=== PATIENT | female | born 1960 | race Caucasian/White ===

== ENCOUNTER 2016-12-08 10:36 | Emergency (ER) | payer MEDICAID, OTHER ==
[2016-12-08 10:52] VITALS: BMI 38.3
[2016-12-08 10:53] VITALS: BP 118/89; PULSE 76; RESP 20; TEMP 98.3; O2SAT 98
--- NOTE | 2016-12-08 11:29 | ED PDOC ---
HPI: Abdomen Time Seen by Provider: 12/08/16 11:02 Chief Complaint (Nursing): Abdominal Pain Chief Complaint (Provider): RLQ/flank pain x 2 days, no N/V/D History Per: Patient History/Exam Limitations: no limitations Onset/Duration Of Symptoms: Days Outside of [place] travel?: No Current Symptoms Are (Timing): Still Present Severity: Moderate Pain Scale Rating Of: 6 Location Of Pain/Discomfort: RLQ Quality Of Discomfort: Sharp (Intermittent ) Associated Symptoms: Urinary Symptoms (Pt states she feels like she is going a small amount often ). denies: Fever, Chills, Nausea, Vomiting, Loss Of Appetite Last Bowel Movement: Today Additional Complaint(s): Pt states she had kidney stones in the past but this feels different. Past Medical History Reviewed: Historical Data, Nursing Documentation, Vital Signs Vital Signs: Last Vital Signs Temp 98.3 F 12/08/16 10:52 Pulse 76 12/08/16 10:52 Resp 20 12/08/16 10:52 BP 118/89 12/08/16 10:52 Pulse Ox 98 12/08/16 11:34 - Medical History PMH: Arthritis (right hip and right knee), Asthma, Diabetes, HTN, Hypercholesterolemia, Hypothyroidism, Kidney Stones (RIGHT) Denies: HIV, Chronic Kidney Disease - Surgical History Surgical History: Appendectomy, Cholecystectomy - Family History Family History: States: Unknown Family Hx - Living Arrangements Living Arrangements: With Family - Social History Current smoker - smoking cessation education provided: No Alcohol: None Drugs: Denies - Immunization History Hx Tetanus Toxoid Vaccination: No Hx Influenza Vaccination: No Hx Pneumococcal Vaccination: Yes - Home Medications Home Medications: Ambulatory Orders Medication Instructions Recorded Albuterol HFA [Ventolin HFA 90 2 puff IH PRN PRN 11/12/15 mcg/actuation (8 g)] Atorvastatin Calcium [Lipitor] 40 mg PO DAILY 11/12/15 Diclofenac Sodium [Voltaren] 100 gm TP PRN PRN 11/12/15 Furosemide [Lasix] 20 mg PO DAILY 11/12/15 Levothyroxine [Synthroid] 50 mcg PO DAILY 11/12/15 Metformin HCl [Glucophage] 500 mg PO DAILY 11/12/15 Mometasone/Formoterol [Dulera] 2 lara IH BID 11/12/15 Montelukast [Singulair] 10 mg PO DAILY 11/12/15 Multivit,Iron,Min 5/Folic Acid 1 tab PO DAILY 11/12/15 [Strovite Forte] Naproxen [Naprosyn] 500 mg PO DAILY PRN 11/12/15 Potassium Chloride [K-Dur 20] 20 meq PO DAILY 11/12/15 Famotidine [Pepcid] 20 mg PO HS #5 tab 06/18/16 Prednisone [Deltasone] 40 mg PO DAILY #8 tablet 06/18/16 Ciprofloxacin [Cipro] 500 mg PO BID #10 tab 12/08/16 Tamsulosin [Flomax] 0.4 mg PO DAILY #10 cap 12/08/16 traMADol [Ultram] 50 mg PO Q6H PRN #15 tab 12/08/16 - Allergies Allergies/Adverse Reactions: Allergies Allergy/AdvReac Type Severity Reaction Status Date / Time No Known Allergies Allergy Verified 12/08/16 11:25 Review of Systems ROS Statement: Except As Marked, All Systems Reviewed And Found Negative Gastrointestinal: Positive for: Abdominal Pain (Right flank ) Physical Exam - Reviewed Nursing Documentation Reviewed: Yes Vital Signs Reviewed: Yes - Physical Exam Appears: Positive for: Well, Non-toxic, No Acute Distress Head Exam: Positive for: ATRAUMATIC, NORMAL INSPECTION, NORMOCEPHALIC Skin: Positive for: Normal Color, Warm, DRY Eye Exam: Positive for: Normal appearance ENT: Positive for: Normal ENT Inspection Neck: Positive for: Normal, Painless ROM Cardiovascular/Chest: Positive for: Regular Rate, Rhythm Respiratory: Positive for: Normal Breath Sounds. Negative for: Accessory Muscle Use, Respiratory Distress Gastrointestinal/Abdominal: Positive for: Bowel Sounds, Soft, Tenderness (RLQ at [place] ). Negative for: Normal Exam Back: Positive for: Normal Inspection Extremity: Positive for: Normal ROM Neurologic/Psych: Positive for: Alert, Oriented - Laboratory Results Result Diagrams: 12/08/16 12:17 12/08/16 12:17 - ECG O2 Sat by Pulse Oximetry: 98 Pulse Ox Interpretation: Normal Medical Decision Making Medical Decision Making: (+) kidney stone, distal ureter (+) mass right pelvis, unchanged from previous (+) unchanged bilateral avascular necrosis Disposition - Clinical Impression Clinical Impression: Kidney stone - Patient ED Disposition Is Patient to be Admitted: No Counseled Patient/Family Regarding: Diagnosis, Need For Followup, Rx Given - Disposition Referrals: [facility] [Outside] Disposition: Routine/Home Disposition Time: 15:13 Condition: GOOD Additional Instructions: Please f.u with PMD for additional findings on CT scan. Prescriptions: Ciprofloxacin [Cipro] 500 mg PO BID #10 tab Tamsulosin [Flomax] 0.4 mg PO DAILY #10 cap traMADol [Ultram] 50 mg PO Q6H PRN #15 tab PRN Reason: Pain Instructions: Kidney Stones (ED) Print Language: ARABIC
[2016-12-08] MEDS ORDERED: Sodium Chloride 0.9% 1,000 ML IV STA (11:30)
[2016-12-08 12:28] LABS: BASO % 0.5 % (0.0-2.0); EOS # 0.4 K/uL (0.0-0.7); EOS % 5.2 % (0.0-4.0); HEMATOCRIT 37.5 % (34.0-47.0); LYMPH # 1.8 K/uL (1.0-4.3); LYMPH % 24.5 % (20.0-40.0); MEAN CELL VOLUME 90.8 fl (81.0-99.0); MEAN CORPUSCULAR HEMOGLOBIN 30.3 pg (27.0-31.0); MEAN CORPUSCULAR HGB CONC 33.4 g/dL (33.0-37.0); MEAN PLATELET VOLUME 8.4 fl (7.2-11.7); MONO # 0.5 K/uL (0.0-0.8); NEUT # 4.8 K/uL (1.8-7.0); NEUT % 63.8 % (50.0-75.0); WHITE BLOOD COUNT 7.5 K/uL (4.8-10.8)
[2016-12-08 12:42] LABS: ALB/GLOB RATIO 1.6 (1.0-2.1); ALKALINE PHOSPHATASE 127 U/L (38-126); ALT/SGPT 45 U/L (9-52); AST/SGOT 31 U/L (14-36); BILIRUBIN,TOTAL 0.4 mg/dl (0.2-1.3); BLOOD UREA NITROGEN 14 mg/dl (7-17); CALCIUM 10.2 mg/dL (8.4-10.2); CARBON DIOXIDE 24 mmol/L (22-30); CHLORIDE 102 mmol/L (98-107); GFR AFRICAN-AMERICAN > 60; GLUCOSE,RANDOM 154 mg/dL (65-105); SODIUM 139 mmol/l (132-148); TOTAL PROTEIN 7.1 G/DL (6.3-8.2)
[2016-12-08] MEDS ORDERED: Iohexol 300 100 ML IJ ONE (13:17)
[2016-12-08] MEDS ORDERED: Sodium Chloride 0.9% 50 ML IV ONE (13:17)
--- NOTE | 2016-12-08 15:00 | CT ---
PROCEDURE: CT Abdomen and Pelvis with contrast HISTORY: rlq pain COMPARISON: 10/03/2015 TECHNIQUE: Contrast dose: 95 cc Radiation dose: Total exam DLP = 1065.71 mGy-cm. This CT exam was performed using one or more of the following dose reduction techniques: Automated exposure control, adjustment of the mA and/or kV according to patient size, and/or use of iterative reconstruction technique. FINDINGS: LOWER THORAX: Unremarkable. LIVER: Hypoattenuation of the liver could be related to hepatic steatosis. No gross lesion identified. GALLBLADDER AND BILE DUCTS: Gallbladder not seen. Surgical clips in the gallbladder fossa. No intra or extrahepatic biliary ductal dilatation. PANCREAS: Fat infiltration in the region of the pancreatic head. Otherwise no gross pancreatic lesion seen. SPLEEN: Unremarkable. ADRENALS: Unremarkable. No mass. KIDNEYS AND URETERS: Decreased attenuation of the right kidney with moderate to severe hydronephrosis. There is mild to moderate hydroureteronephrosis with a radiopaque calculus measuring approximately 5 millimeters in the distal right ureter. Left kidney appears unremarkable. No hydronephrosis on the left. VASCULATURE: Unremarkable. No aortic aneurysm. BOWEL: Collapsed stomach limiting evaluation. No bowel obstruction. APPENDIX: Normal appendix. PERITONEUM: Unremarkable. No free fluid. No free air. LYMPH NODES: 2.8 centimeter hypoattenuating structure in the retroperitoneum adjacent to the aorta on the left and inferior to the left adrenal gland again seen. This has remained stable in size. BLADDER: Near completely collapsed limiting evaluation. REPRODUCTIVE: Please note that evaluation of gynecologic organs is not optimal on CT imaging. Fluid attenuating structure in the left hemipelvis measuring 3.4 centimeters has remained stable in size in appearance. This is of unclear etiology. BONES: Possible avascular necrosis bilaterally involving the femoral heads right greater than left. This was seen in the prior CT and has remained essentially unchanged in size and appearance. OTHER FINDINGS: None. IMPRESSION: 5 millimeter radiopaque calculus in the distal right ureter with associated moderate to severe hydroureteronephrosis and perinephric stranding. Underlying infection cannot be excluded. Near completely collapsed urinary bladder limiting evaluation. No hydronephrosis on the left. 2.8 centimeter hypo attenuating structure in the retroperitoneum in the left/adjacent to the aorta and inferior to the left adrenal gland again seen, stable in size and appearance. 3.4 centimeter fluid attenuating structure in the left hemipelvis has remained stable in size in appearance. Discussed with PA. Burks at approximately 3 p.m. on 12/08/2016.
== END 2016-12-08 15:35 | disposition home or self-care (01) ==
LOC: H.ER 10:36
DX: N20.0 Calculus of kidney (principal); E03.9 Hypothyroidism, unspecified; E11.9 Type 2 diabetes mellitus without complications; E78.00 Pure hypercholesterolemia, unspecified; I10 Essential (primary) hypertension; J45.909 Unspecified asthma, uncomplicated

== ENCOUNTER 2016-12-09 19:26 | Inpatient (IN) | payer OTHER ==
[2016-12-09 19:26] VITALS: BMI 38.3
[2016-12-09] MEDS ORDERED: Sodium Chloride 0.9% 1,000 ML IV STA (20:26)
[2016-12-09] MEDS ORDERED: levoFLOXacin 750 mg in D5W 150 ML BAG IVPB STA (20:41)
[2016-12-09] MEDS ORDERED: levoFLOXacin 750 mg in D5W 750 MG/150 ML BAG IVPB ONE (20:57)
--- NOTE | 2016-12-09 20:58 | ED PDOC ---
HPI: Abdomen Time Seen by Provider: 12/09/16 20:22 Chief Complaint (Nursing): Abdominal Pain Chief Complaint (Provider): Abdominal Pain History Per: Patient History/Exam Limitations: no limitations Onset/Duration Of Symptoms: Days (1x) Severity: Moderate Location Of Pain/Discomfort: Other (right side (right flank)) Associated Symptoms: Vomiting (5x episodes, non bloody, non bilious), Back Pain (right flank) Additional Complaint(s): 56 year old female with a pertinent medical history of kidney stones presents to the ED with complaints of right sided abdominal and flank pain. She was seen in the ED yesterday for kidney stones and was sent home with PO medication. Patient reports that today she vomited 5x times (non bloody, non bilious). Today she was sent to the ED by her PMD Dr. Jennings. She denies having any other medical complaints. PMD: Eagle Jennings MD Past Medical History Reviewed: Historical Data, Nursing Documentation, Vital Signs Vital Signs: Last Vital Signs Temp 98.8 F 12/10/16 01:00 Pulse 77 12/10/16 01:00 Resp 20 12/10/16 01:00 BP 106/68 12/10/16 01:00 Pulse Ox 95 12/10/16 01:00 - Medical History PMH: Arthritis (right hip and right knee), Asthma, Diabetes, HTN, Hypercholesterolemia, Hypothyroidism, Kidney Stones (RIGHT) Denies: HIV, Chronic Kidney Disease - Surgical History Surgical History: Appendectomy, Cholecystectomy - Family History Family History: States: Unknown Family Hx - Social History Current smoker - smoking cessation education provided: No Alcohol: None Drugs: Denies - Immunization History Hx Tetanus Toxoid Vaccination: No Hx Influenza Vaccination: No Hx Pneumococcal Vaccination: Yes - Home Medications Home Medications: Ambulatory Orders Medication Instructions Recorded Albuterol HFA [Ventolin HFA 90 2 puff IH PRN PRN 11/12/15 mcg/actuation (8 g)] Atorvastatin Calcium [Lipitor] 40 mg PO DAILY 11/12/15 Diclofenac Sodium [Voltaren] 100 gm TP PRN PRN 11/12/15 Furosemide [Lasix] 20 mg PO DAILY 11/12/15 Levothyroxine [Synthroid] 50 mcg PO DAILY 11/12/15 Metformin HCl [Glucophage] 500 mg PO DAILY 11/12/15 Mometasone/Formoterol [Dulera] 2 lara IH BID 11/12/15 Montelukast [Singulair] 10 mg PO DAILY 11/12/15 Multivit,Iron,Min 5/Folic Acid 1 tab PO DAILY 11/12/15 [Strovite Forte] Naproxen [Naprosyn] 500 mg PO DAILY PRN 11/12/15 Potassium Chloride [K-Dur 20] 20 meq PO DAILY 11/12/15 Famotidine [Pepcid] 20 mg PO HS #5 tab 06/18/16 Prednisone [Deltasone] 40 mg PO DAILY #8 tablet 06/18/16 Ciprofloxacin [Cipro] 500 mg PO BID #10 tab 12/08/16 Tamsulosin [Flomax] 0.4 mg PO DAILY #10 cap 12/08/16 traMADol [Ultram] 50 mg PO Q6H PRN #15 tab 12/08/16 - Allergies Allergies/Adverse Reactions: Allergies Allergy/AdvReac Type Severity Reaction Status Date / Time No Known Allergies Allergy Verified 12/08/16 11:25 Review of Systems ROS Statement: Except As Marked, All Systems Reviewed And Found Negative Gastrointestinal: Positive for: Nausea, Vomiting, Abdominal Pain (right sided) Musculoskeletal: Positive for: Back Pain (right sided flank pain) Physical Exam - Reviewed Nursing Documentation Reviewed: Yes Vital Signs Reviewed: Yes - Physical Exam Appears: Positive for: Well, Non-toxic, No Acute Distress Head Exam: Positive for: ATRAUMATIC, NORMOCEPHALIC Skin: Positive for: Normal Color, Warm, Dry Cardiovascular/Chest: Positive for: Regular Rate, Rhythm Respiratory: Positive for: Normal Breath Sounds. Negative for: Respiratory Distress Gastrointestinal/Abdominal: Positive for: Normal Exam, Soft. Negative for: Tenderness, Guarding, Rebound Back: Positive for: R CVA Tenderness (right flank tenderness) Neurologic/Psych: Positive for: Alert, Oriented (3x) - Laboratory Results Result Diagrams: 12/09/16 21:00 12/09/16 21:00 - ECG O2 Sat by Pulse Oximetry: 99 (RA) Pulse Ox Interpretation: Normal Medical Decision Making Medical Decision Makin:22 Initial impression: 56 year old female with kidney stones and intractable vomiting. Initial plan: * EKG * BMP * CBC * XRay chest 1 view * levaquin 750 mg IVPB * morphine 2mg IVP * IV NS 1,000ml IV 500mls/hr * toradol 15mg IVP * zofran inj 4mg IVP * blood culture * urine culture * urinalysis * reevaluation 20:32 Patient will be admitted to med/surg under Dr. Jennings for kidney stones and intractable vomiting. There is agreement for plan. Dr. Herbert consulted and will see patient while admitted. Scribe Attestation: Documented by Sonya Ca, acting as a scribe for Stephen Castillo MD. Provider Scribe Attestation: All medical record entries made by the Scribe were at my direction and personally dictated by me. I have reviewed the chart and agree that the record accurately reflects my personal performance of the history, physical exam, medical decision making, and the department course for this patient. I have also personally directed, reviewed, and agree with the discharge instructions and disposition. Disposition - Clinical Impression Clinical Impression: Kidney stone - Disposition Disposition Time: 20:32 Condition: STABLE
[2016-12-09 21:46] LABS: BASO # 0.1 K/uL (0.0-0.2); BASO % 0.4 % (0.0-2.0); EOS # 0.1 K/uL (0.0-0.7); EOS % 0.5 % (0.0-4.0); HEMATOCRIT 40.3 % (34.0-47.0); LYMPH % 7.4 % (20.0-40.0); MEAN CELL VOLUME 91.8 fl (81.0-99.0); MEAN CORPUSCULAR HEMOGLOBIN 29.6 pg (27.0-31.0); MEAN CORPUSCULAR HGB CONC 32.3 g/dL (33.0-37.0); MEAN PLATELET VOLUME 8.5 fl (7.2-11.7); MONO # 0.4 K/uL (0.0-0.8); NEUT # 11.5 K/uL (1.8-7.0); NEUT % 88.7 % (50.0-75.0); PLATELET COUNT 320 K/uL (130-400); RED CELL DISTRIBUTION WIDTH 14.3 % (11.5-14.5)
[2016-12-09 21:52] LABS: BLOOD UREA NITROGEN 10 mg/dl (7-17); CALCIUM 10.2 mg/dL (8.4-10.2); CARBON DIOXIDE 26 mmol/L (22-30); CHLORIDE 99 mmol/L (98-107); GFR AFRICAN-AMERICAN > 60; GLUCOSE,RANDOM 129 mg/dL (65-105); POTASSIUM 4.1 MMOL/L (3.6-5.0); SODIUM 141 mmol/l (132-148)
[2016-12-09 22:25] LABS: NEUTROPHIL 89 % (42-75); TOTAL CELLS COUNTED 100
[2016-12-09] MEDS ORDERED: HYDROmorphone 0.5 mg/0.5 ml ISec IVP PRN (23:12)
[2016-12-09] MEDS: Sodium Chloride 0.9% 1,000 ML IV SCH (23:46)
[2016-12-09] MEDS ORDERED: Albuterol HFA 90 mcg/actuation (8 g) IH PRN (23:55)
[2016-12-10] MEDS ORDERED: Albuterol HFA 90 mcg/actuation (8 g) INH PRN (00:20)
[2016-12-10] MEDS ORDERED: VENTOLIN INH SCH (01:00)
[2016-12-10] MEDS ORDERED: VENTOLIN INH PRN (01:00)
[2016-12-10] MEDS: Ciprofloxacin 400mg/200ml D5W 400 MG/200 ML BAG IVPB SCH ×3 (01:07→20:49)
[2016-12-10 04:00] LABS: RBC URINE < 1 /hpf (0-3); URINE BILIRUBIN NEGATIVE (NEGATIVE); URINE BLOOD NEGATIVE (NEGATIVE); URINE COLOR YELLOW (YELLOW); URINE GLUCOSE (UA) NEG (Normal); URINE KETONE NEGATIVE (NEGATIVE); URINE LEUKOCYTE ESTERASE NEG Leu/uL (Negative); URINE PROTEIN 30 mg/dL (NEGATIVE); URINE UROBILINOGEN 0.2-1.0 mg/dL (0.2-1.0); WBC URINE 1 /hpf (0-5)
[2016-12-10] MEDS: Levothyroxine 50 MCG TAB PO SCH (06:25)
[2016-12-10] MEDS: Insulin Lispro (humaLOG) 100 Units/ml Inj SC SCH ×4 (07:22→22:05)
[2016-12-10] MEDS ORDERED: Insulin Regular 100 units/ml SC SCH (07:30)
--- NOTE | 2016-12-10 08:46 | CARD ---
APPROVED REPORT EKG Measurement Heart [id number] <Conclusion> Normal sinus rhythm Normal ECG
--- NOTE | 2016-12-10 09:59 | RAD ---
PROCEDURE: CHEST RADIOGRAPH, 1 VIEW HISTORY: abd pain COMPARISON: None available. FINDINGS: LUNGS: Clear. PLEURA: No pneumothorax or pleural fluid seen. CARDIOVASCULAR: Normal. OSSEOUS STRUCTURES: No significant abnormalities. VISUALIZED UPPER ABDOMEN: Normal. OTHER FINDINGS: None. IMPRESSION: No active disease.
[2016-12-10] MEDS: Sodium Chloride 0.9% 1,000 ML IV SCH ×2 (10:33→14:45)
[2016-12-10] MEDS ORDERED: Midazolam 2 MG/2 ML VIAL ONE (11:58)
[2016-12-10] MEDS ORDERED: Propofol 10 mg/ml Inj (20 ML) ONE (11:58)
[2016-12-10] MEDS ORDERED: cefTRIAXone (Rocephin) 1 gm Inj ONE (12:30)
[2016-12-10] MEDS ORDERED: Lactated Ringer's 1,000 ML IV ONE (12:30)
[2016-12-10] MEDS ORDERED: cefTRIAXone (Rocephin) 1 gm Inj IVPB ONE (12:40)
[2016-12-10] MEDS ORDERED: HYDROmorphone 0.5 mg/0.5 ml ISec IVP PRN (13:05)
--- NOTE | 2016-12-10 13:05 | CP.PCM.PN ---
Subjective - Date & Time of Evaluation Date of Evaluation: 12/10/16 Time of Evaluation: 13:04 - Subjective Subjective: UROLOGY stone removed from ureter today pt can be discharged today no need for antibiotics Objective - Vital Signs/Intake and Output Vital Signs (last 24 hours): Temp Pulse Resp BP Pulse Ox 99.0 F 76 20 124/77 97 12/10/16 08:05 12/10/16 08:05 12/10/16 08:05 12/10/16 08:05 12/10/16 08:05 - Medications Medications: Current Medications Famotidine (Pepcid) 20 mg PO [facility] Furosemide (Lasix) 20 mg PO DAILY [facility] Last Admin: 12/10/16 10:32 Dose: Not Given Home Med (Patient's Own Medication) 2 unit INH Q4 PRN PRN Reason: shortness of breathe Last Admin: 12/10/16 01:08 Dose: 2 unit Hydromorphone HCl (Dilaudid) 0.5 mg IVP Q2 PRN PRN Reason: Pain, moderate (4-7) Sodium Chloride (Sodium Chloride 0.9%) 1,000 mls @ 100 mls/hr IV .Q10H [facility] Stop: 12/10/16 23:11 Last Admin: 12/10/16 10:33 Dose: 100 mls/hr Ciprofloxacin (Cipro 400mg/200ml Dsw) 400 mg in 200 mls @ 200 mls/hr IVPB Q12 [facility] Last Admin: 12/10/16 10:31 Dose: 200 mls/hr Insulin Human Lispro (Humalog) 0 units SC ACHS RAZIA PRN Reason: Protocol Last Admin: 12/10/16 07:22 Dose: Not Given Levothyroxine Sodium (Synthroid) 50 mcg PO DAILY@0630 [facility] Last Admin: 12/10/16 06:25 Dose: 50 mcg Montelukast Sodium (Singulair) 10 mg PO DAILY [facility] Last Admin: 12/10/16 10:32 Dose: Not Given Tamsulosin HCl (Flomax) 0.4 mg PO DAILY [facility] Last Admin: 12/10/16 10:32 Dose: 0.4 mg Tamsulosin HCl (Flomax) 0.4 mg PO DAILY [facility] Last Admin: 12/10/16 10:32 Dose: Not Given - Labs Labs: 12/09/16 21:00 12/09/16 21:00
--- NOTE | 2016-12-11 00:33 | HP ---
HISTORY OF PRESENT ILLNESS: This is a 56-year-old female with history of multiple medical problems, presented to my office on the day of admission with right flank pain. The patient was sent to Emergency Room the night before , and she was diagnosed with ureteric stone with hydroureter and hydronephrosis. Because the stone was 4 mm in size, the patient was given pain medicine, and she was discharged home. The patient continued to have pain and presented to my office on the day of admission. The patient was referred to Emergency Room for evaluation and was admitted for further management. The patient had previous history of passing stones and similar presentation about a year ago. The patient's urologist is Dr. Herbert. The patient denies having fever or chills. Positive symptoms of dysuria. REVIEW OF SYSTEMS: Other review of systems is negative. ALLERGIES: No known allergies. HOME MEDICATIONS: Ultram 50 mg q. 6 hours p.r.n., Flomax 0.4 mg daily, prednisone 40 mg daily, potassium chloride 20 mEq daily, naproxen 500 mg daily, multivitamin 1 tablet daily, Singulair 10 mg, Synthroid 50 mcg daily, Lasix 20 mg daily, Pepcid 20 mg daily, atorvastatin 40 mg daily. PAST MEDICAL HISTORY: Type 2 diabetes mellitus, hypercholesterolemia, hypothyroidism, bronchial asthma. SOCIAL HISTORY: No history of smoking, ETOH, or substance abuse. FAMILY HISTORY: Not contributory. PHYSICAL EXAMINATION: GENERAL: The patient is in bed, comfortable, not in any cardiopulmonary distress. VITAL SIGNS: Blood pressure 104/68, temperature 98.6, respiratory rate 20, and pulse 77. HEENT: Pupils equal, reactive to light. Normal-appearing mucosa of the conjunctivae, oropharyngeal, and nasal membrane mucosa. NECK: Supple. No JVD. No carotid bruit. No lymph node. No thyromegaly. CHEST AND LUNGS: Bilateral symmetrical expansion, good air exchange. No rales. No rhonchi. CARDIOVASCULAR: PMI not localized. S1, S2. No additional sounds. ABDOMEN: Normoactive bowel sounds. No tenderness. No organomegaly. No masses. EXTREMITIES: No cyanosis. No clubbing. No edema. CENTRAL NERVOUS SYSTEM: Alert, awake, oriented x 3. No neurological deficits could be appreciated. ASSESSMENT: Ureteric stone with hydroureter and hydronephrosis, type 2 diabetes mellitus, hypertension, bronchial asthma, hypothyroidism. PLAN: Continue IV fluids and ciprofloxacin. Urology consultation and follow recommendations. Accu-Cheks with insulin coverage. Idalmis Arsh Jennings MD cc: 167 TT: 12/11/2016 00:32:27 tn MTDD
[2016-12-11] MEDS: Levothyroxine 50 MCG TAB PO SCH (06:31)
--- NOTE | 2016-12-11 06:39 | CARD ---
APPROVED REPORT EKG Measurement Heart [id number] <Conclusion> Normal sinus rhythm Normal ECG
[2016-12-11] MEDS: Insulin Lispro (humaLOG) 100 Units/ml Inj SC SCH (06:50)
[2016-12-11 08:30] VITALS: PULSE 67; RESP 20; TEMP 98.4; O2SAT 96
[2016-12-11] MEDS: Ciprofloxacin 400mg/200ml D5W 400 MG/200 ML BAG IVPB SCH (09:40)
[2016-12-11] MEDS ORDERED: Albuterol-Ipratrop 3 mg / 0.5 (3 ml) UD INH STA (09:45)
[2016-12-11 09:47] VITALS: BP 136/81
--- NOTE | 2016-12-11 21:05 | DS ---
REASON FOR ADMISSION: This is a 56-year-old female with history of multiple medical problem s who was admitted for biliary colic with right ureteral stone and right hydronephrosis. COURSE OF HOSPITALIZATION: The patient was admitted to medical floor and she was started on IV fluid and IV antibiotics. The patient had a urology consult done by Dr. Herbert. The patient underwent a cystoscopy and ureteroscopy with basketing out of the stone and the patient had a stent placed. The patient was discharged in a stable condition after cleared by urology, to follow up with urology and with her primary care physician. FINAL DIAGNOSES: Renal colic, ureteric stone with right hydronephrosis. Eagle Jennings MD cc: 167 TT: 12/11/2016 21:05:21 olinda
--- NOTE | 2016-12-30 20:03 | OP ---
PROCEDURE DATE: 12/10/2016 PREOPERATIVE DIAGNOSIS: Right renal colic secondary to a right ureteral calculus. POSTOPERATIVE DIAGNOSIS: Right renal colic secondary to a right ureteral calculus. PROCEDURE PERFORMED: Cystoscopy, right ureteroscopy, stone basketing. DESCRIPTION OF PROCEDURE: The patient was placed on the operating table in a dorsal lithotomy positi on. The area of the groin was draped and prepped in a sterile manner. Using a short ureteroscope, I entered into the bladder atraumatically, identified the right ureteral orifice. Over a floppy tip g uidewire, I advanced the ureteroscope to the level of the obstructing stone. I bypassed it. I was a ble to deploy doubly helical basket, I engaged it and removed it completely. Once this was done, I t ook a second pass look no residual fragments noted. At this time, then the ureteroscope was removed. The patient was taken from the operating room in good condition. The stone was sent for specimen a nalysis. Víctor Herbert MD cc: 48 TT: 12/30/2016 20:02:33 flavia
== END 2016-12-11 16:06 | disposition home or self-care (01) | DRG 311 ==
LOC: H.ER 19:26 → H.ERHOLD 20:28 → H.MEDSURG1 23:04 → OBSVTOIN 12-10 18:54
PROVIDERS: ADMIT Internal Medicine; ATTEND Internal Medicine
PROC: 0TC68ZZ Extirpation of Matter from Right Ureter, Via Natural or Artificial Opening Endoscopic (ICD-10-PCS; principal; 2016-12-10 12:15)
DX: N13.2 Hydronephrosis with renal and ureteral calculous obstruction (principal); I10 Essential (primary) hypertension; E03.9 Hypothyroidism, unspecified; E11.9 Type 2 diabetes mellitus without complications; E78.00 Pure hypercholesterolemia, unspecified; J45.909 Unspecified asthma, uncomplicated; Z87.442 Personal history of urinary calculi; M16.11 Unilateral primary osteoarthritis, right hip; M17.11 Unilateral primary osteoarthritis, right knee

== ENCOUNTER 2017-03-26 15:41 | Observation (INO) | payer OTHER ==
[2017-03-26 15:42] VITALS: BMI 38.3
[2017-03-26] MEDS ORDERED: Albuterol-Ipratrop 3 mg / 0.5 (3 ml) UD IH STA ×2 (15:58)
[2017-03-26] MEDS ORDERED: Albuterol-Ipratrop 3 mg / 0.5 (3 ml) UD ONE (16:06)
--- NOTE | 2017-03-26 16:06 | ED PDOC ---
HPI: SOB/CHF/COPD Time Seen by Provider: 03/26/17 15:52 Chief Complaint (Nursing): Shortness Of Breath Chief Complaint (Provider): Shortness Of Breath History Per: Patient History/Exam Limitations: no limitations Onset/Duration Of Symptoms: Days (x2) Current Symptoms Are (Timing): Still Present Additional Complaint(s): Estefania is a 56 y/o female who presents to the ED complaining of shortness of breath with associated wheezing and non-productive cough for 2 days. No improvement with home inhalers or nebulizer treatments. No fever. Patient with past medical history of asthma, hypothyroidism, and hypercholesterolemia. PMD: Eagle Jennings Past Medical History Vital Signs: Last Vital Signs Temp 98.7 F 03/26/17 16:27 Pulse 77 03/26/17 16:27 Resp 19 03/26/17 17:01 BP 112/69 03/26/17 16:27 Pulse Ox 99 03/26/17 16:27 - Medical History PMH: Arthritis (right hip and right knee), Asthma, Diabetes, HTN, Hypercholesterolemia, Hypothyroidism, Kidney Stones (RIGHT) Denies: HIV, Chronic Kidney Disease - Surgical History Surgical History: Appendectomy, Cholecystectomy - Family History Family History: States: Unknown Family Hx - Immunization History Hx Tetanus Toxoid Vaccination: No Hx Influenza Vaccination: No Hx Pneumococcal Vaccination: Yes - Home Medications Home Medications: Ambulatory Orders Medication Instructions Recorded Albuterol HFA [Ventolin HFA 90 2 puff IH PRN PRN 11/12/15 mcg/actuation (8 g)] Atorvastatin Calcium [Lipitor] 40 mg PO DAILY 11/12/15 Diclofenac Sodium [Voltaren] 100 gm TP PRN PRN 11/12/15 Furosemide [Lasix] 20 mg PO DAILY 11/12/15 Levothyroxine [Synthroid] 50 mcg PO DAILY 11/12/15 Metformin HCl [Glucophage] 500 mg PO DAILY 11/12/15 Mometasone/Formoterol [Dulera 200 2 lara IH BID 11/12/15 Mcg/5 Mcg Inhaler] Montelukast [Singulair] 10 mg PO DAILY 11/12/15 Multivit,Iron,Min 5/Folic Acid 1 tab PO DAILY 11/12/15 [Strovite Forte Caplet] Naproxen [Naprosyn] 500 mg PO DAILY PRN 11/12/15 Potassium Chloride [K-Dur 20 mEq 20 meq PO DAILY 11/12/15 ER Tab] Famotidine [Pepcid] 20 mg PO HS #5 tab 06/18/16 Tamsulosin [Flomax] 0.4 mg PO DAILY #10 cap 12/08/16 traMADol [Ultram] 50 mg PO Q6H PRN #15 tab 12/08/16 Ciprofloxacin [Cipro] 500 mg PO BID #10 tab 12/11/16 Lactobacillus Acidophilus [Bacid 1 cap PO DAILY #10 cap 12/11/16 Acidophilus] - Allergies Allergies/Adverse Reactions: Allergies Allergy/AdvReac Type Severity Reaction Status Date / Time No Known Allergies Allergy Verified 12/08/16 11:25 Review of Systems ROS Statement: Except As Marked, All Systems Reviewed And Found Negative Constitutional: Negative for: Fever, Chills Cardiovascular: Negative for: Chest Pain Respiratory: Positive for: Cough (non productive), Shortness of Breath, Wheezing Physical Exam - Reviewed Nursing Documentation Reviewed: Yes Vital Signs Reviewed: Yes - Physical Exam Appears: Positive for: Non-toxic, No Acute Distress Head Exam: Positive for: ATRAUMATIC, NORMAL INSPECTION, NORMOCEPHALIC Skin: Positive for: Normal Color, Warm, Dry Eye Exam: Positive for: EOMI, Normal appearance, PERRL ENT: Positive for: Normal ENT Inspection Neck: Positive for: Normal, Painless ROM, Supple Cardiovascular/Chest: Positive for: Regular Rate, Rhythm. Negative for: Murmur Respiratory: Positive for: Decreased Breath Sounds, Rhonchi (scattered rhonchi bilaterally), Wheezing (expiratory). Negative for: Respiratory Distress Gastrointestinal/Abdominal: Positive for: Normal Exam, Soft. Negative for: Tenderness Extremity: Positive for: Normal ROM. Negative for: Pedal Edema, Deformity Neurologic/Psych: Positive for: Alert, Oriented. Negative for: Motor/Sensory Deficits - Laboratory Results Result Diagrams: 03/26/17 16:20 Medical Decision Making Medical Decision Making: Time: 15:57 Initial Plan: --EKG --CXR 2 views --CMP --CBC --Urine --Urine dipstick --Blood culture --Solu-medrol 125 mg IV x1 --Duoneb 3 ml INH x2 --Peak Flow pre/post treatment --Pending reevaluation Scribe Attestation: Documented by Joanna Clay, acting as a scribe for Kody Thakkar MD Provider Scribe Attestation: All medical record entries made by the Scribe were at my direction and personally dictated by me. I have reviewed the chart and agree that the record accurately reflects my personal performance of the history, physical exam, medical decision making, and the department course for this patient. I have also personally directed, reviewed, and agree with the discharge instructions and disposition. Disposition - Clinical Impression Clinical Impression: Exacerbation of asthma, Failure of outpatient treatment - Patient ED Disposition Is Patient to be Admitted: Yes - Disposition Disposition Time: 17:05 Condition: FAIR Forms: [employer] (Chinese) - Pt Status Changed To: Hospital Disposition Of: Observation - POA Present On Arrival: None
[2017-03-26 16:52] LABS: BASO % 0.6 % (0.0-2.0); EOS # 0.2 K/uL (0.0-0.7); EOS % 3.5 % (0.0-4.0); HEMATOCRIT 39.6 % (34.0-47.0); LYMPH # 1.9 K/uL (1.0-4.3); LYMPH % 29.1 % (20.0-40.0); MEAN CORPUSCULAR HEMOGLOBIN 29.7 pg (27.0-31.0); MEAN CORPUSCULAR HGB CONC 32.6 g/dL (33.0-37.0); MEAN PLATELET VOLUME 8.1 fl (7.2-11.7); MONO # 0.3 K/uL (0.0-0.8); NEUT # 4.1 K/uL (1.8-7.0); NEUT % 61.8 % (50.0-75.0); RED CELL DISTRIBUTION WIDTH 14.7 % (11.5-14.5); WHITE BLOOD COUNT 6.7 K/uL (4.8-10.8)
[2017-03-26 17:05] LABS: ALB/GLOB RATIO 1.6 (1.0-2.1); ALKALINE PHOSPHATASE 124 U/L (38-126); ALT/SGPT 45 U/L (9-52); AST/SGOT 25 U/L (14-36); BILIRUBIN,TOTAL 0.6 mg/dl (0.2-1.3); BLOOD UREA NITROGEN 10 mg/dl (7-17); CARBON DIOXIDE 21 mmol/L (22-30); CHLORIDE 103 mmol/L (98-107); GFR AFRICAN-AMERICAN > 60; GLUCOSE,RANDOM 117 mg/dL (65-105); POTASSIUM 4.1 MMOL/L (3.6-5.0); SODIUM 139 mmol/l (132-148); TOTAL PROTEIN 7.6 G/DL (6.3-8.2)
[2017-03-26] MEDS ORDERED: Sodium Chloride 0.9% 1,000 ML IV STA (17:22)
--- NOTE | 2017-03-26 17:26 | RAD ---
HISTORY: SOB COMPARISON: 12/09/2016. TECHNIQUE: Chest PA and lateral FINDINGS: LUNGS: No active pulmonary disease. PLEURA: No significant pleural effusion identified. No pneumothorax apparent. CARDIOVASCULAR: No radiographic findings to suggest acute or significant cardiovascular disease. OSSEOUS STRUCTURES: No significant abnormalities. VISUALIZED UPPER ABDOMEN: Normal. OTHER FINDINGS: None. IMPRESSION: No active disease. No significant interval change compared to the prior examination(s).
[2017-03-26 21:01] LABS: VENOUS BLOOD GAS BASE EXCESS -2.2 mmol/L (0.0-2.0); VENOUS BLOOD GAS PCO2 41 mmHg (40-60); VENOUS BLOOD PH 7.36 (7.32-7.43)
[2017-03-26 22:03] LABS: VENOUS BLOOD GAS BASE EXCESS -2.2 mmol/L (0.0-2.0); VENOUS BLOOD GAS PCO2 41 mmHg (40-60); VENOUS BLOOD PH 7.36 (7.32-7.43)
[2017-03-27] MEDS ORDERED: Albuterol 0.083% Inhal Sol (2.5 mg/3 mL) UD IH PRN (00:02)
[2017-03-27] MEDS ORDERED: Naproxen 500 MG TAB PO PRN (00:02)
[2017-03-27] MEDS ORDERED: Albuterol HFA 90 mcg/actuation (8 g) IH PRN (00:02)
[2017-03-27] MEDS ORDERED: MOMETASONE IH SCH (00:15)
[2017-03-27] MEDS ORDERED: levoFLOXacin 500 mg in D5W 500 MG/100 ML BAG IVPB SCH ×2 (00:15→00:30)
[2017-03-27] MEDS ORDERED: FORMOTEROL IH SCH (00:15)
[2017-03-27] MEDS: methylPREDNISolone 40 MG in Sodium Chloride 0.9% 50 ML IV SCH ×2 (00:23→09:54)
[2017-03-27] MEDS: Albuterol-Ipratrop 3 mg / 0.5 (3 ml) UD INH SCH ×3 (00:59→13:02)
[2017-03-27 05:04] VITALS: O2SAT 95
[2017-03-27] MEDS ORDERED: Levothyroxine 50 MCG TAB PO SCH (06:30)
[2017-03-27] MEDS: Insulin Lispro (humaLOG) 100 Units/ml Inj SC SCH ×2 (06:40→12:32)
[2017-03-27] MEDS ORDERED: Sodium Chloride 3% for Inhalation 4 ML VIAL.NEB IH PRN (07:38)
[2017-03-27] MEDS ORDERED: POTASSIUM CITRATE 10 MEQ PO SCH (09:00)
[2017-03-27] MEDS ORDERED: Fluticasone-Salmeterol 500-50mcg Diskus IH SCH (09:00)
--- NOTE | 2017-03-27 09:15 | CARD ---
APPROVED REPORT EKG Measurement Heart [id number] <Conclusion> Normal sinus rhythm Normal ECG
[2017-03-27 12:27] VITALS: BP 124/72; PULSE 97; RESP 20; TEMP 97.7
--- NOTE | 2017-03-27 14:51 | RAD ---
PROCEDURE: Right knee 03/27/2017 Two views of the right knee performed HISTORY: Right knee pain COMPARISON: None. FINDINGS: BONES: No evidence of acute displaced fracture nor dislocation. JOINTS: Joint spaces preserved. No significant osteoarthritis. JOINT EFFUSION: No significant suprapatellar joint effusion OTHER FINDINGS: None. IMPRESSION: No evidence of acute displaced fracture nor dislocation. If symptoms persist or occult fracture suspected clinically consider repeat radiographs in 5-10 days as most fractures should become radiographically evident in this timeframe.
--- NOTE | 2017-03-28 06:12 | HP ---
HISTORY OF PRESENT ILLNESS: This is a 56-year-old female who has a history of multiple medical problems including bronchial asthma, presented to my office with shortness of breath and wheezing. The patient was referred to emergency room for evaluation. The patient was taking bronchodilator as an outpatient as well as nebulizer treatment without improvement. The patient was also given a steroid in the emergency room, and she was admitted as she did not have complete resolution of her symptoms in emergency room. The patient had similar episodes of exacerbation before. The patient denies any fever. Positive symptoms of cough with expectoration of yellowish white sputum. The patient had also chest x-ray that did not show any new infiltration. REVIEW OF SYSTEMS: Other review of system is positive for right knee pain. ALLERGY: THE PATIENT HAS NO KNOWN ALLERGY. HOME MEDICATIONS: Naproxen 500 mg twice a day, Singulair 10 mg daily, Flonase 1 puff twice a day, Zantac 150 mg twice a day, DuoNeb by nebulizer every 6 hours as needed, levothyroxine 50 mcg daily, atorvastatin 40 mg daily, metformin 500 mg daily. SOCIAL HISTORY: No history of smoking, ETOH or substance abuse. PAST MEDICAL HISTORY: Bronchial asthma, hypothyroidism, hypercholesterolemia. FAMILY HISTORY: Not contributory. PHYSICAL EXAMINATION GENERAL: The patient is on bed, comfortable at the time of this examination. VITAL SIGNS: Blood pressure 126/75, temperature 97.3, respiratory rate 18 and pulse 81. HEENT: Pupils equal and reactive to light. Normal-appearing mucosa of the conjunctivae, oropharynx and nasal membrane mucosa. NECK: Supple. No JVD. No carotid bruit. No lymph node. No thyromegaly. CHEST AND LUNGS: Bilateral symmetrical expansion. Good air exchange. No rales, but there are scattered rhonchi all over lung munguia. CARDIOVASCULAR SYSTEM: PMI not localized. S1, S2. No additional sounds. ABDOMEN: Normoactive bowel sounds. No tenderness. No organomegaly. No masses. EXTREMITIES: No cyanosis. No clubbing. No edema. CENTRAL NERVOUS SYSTEM: Alert, awake and oriented x3. No neurological deficits could be appreciated. ASSESSMENT: 1. Exacerbation of bronchial asthma. 2. Osteoarthritis of the right knee. 3. Type 2 diabetes mellitus. 4. Hypercholesterolemia. PLAN: DuoNeb by nebulizer, started already on Solu-Medrol 40 mg every 8 hours and Levaquin 500 mg daily. All her home medications were resumed. Eagle Jennings MD
--- NOTE | 2017-03-28 06:40 | DS ---
REASON FOR ADMISSION: This is a 56 years old female with history of multiple medical problems who was admitted for exacerbation of bronchial asthma, but did not response to home therapy. COURSE OF HOSPITALIZATION: The patient was admitted to telemetry floor, where she was monitored closely. The patient was started on Solu-Medrol 40 mg IV q. 6 hours as well as nebulizer treatment and Levaquin 500 mg daily. The patient responded to treatment well, and she had no wheezing or respiratory distress, and she was discharged to continue Levaquin 500 mg daily for another 7 days in addition to Medrol-dose pack and to continue nebulizer treatment and inhaled steroid. FINAL DIAGNOSES: 1. Exacerbation of bronchial asthma. 2. Acute bronchitis. 3. Type 2 diabetes mellitus. 4. Osteoarthritis of the right knee. [facility] MD Dick
== END 2017-03-27 14:15 | disposition home or self-care (01) ==
LOC: H.ER 15:41 → H.ERHOLD 17:04 → H.TEL 18:50
PROVIDERS: ADMIT Internal Medicine; ATTEND Internal Medicine
DX: J45.901 Unspecified asthma with (acute) exacerbation (principal); J20.9 Acute bronchitis, unspecified; E03.9 Hypothyroidism, unspecified; E11.9 Type 2 diabetes mellitus without complications; E78.00 Pure hypercholesterolemia, unspecified; I10 Essential (primary) hypertension; M17.11 Unilateral primary osteoarthritis, right knee; Z87.442 Personal history of urinary calculi; M16.11 Unilateral primary osteoarthritis, right hip
CPT/HCPCS: 71020; 73560; 80053; 81025; 82803; 82948; 85025; 87040; 93005; 94150; 94640; 96374; 99285; G0378; J2920; J2930; J7040

== ENCOUNTER 2017-07-16 05:46 | Inpatient (IN) | payer OTHER ==
[2017-07-16 05:57] VITALS: BMI 39.9
[2017-07-16] MEDS ORDERED: Magnesium Sulfate 2 gm/50 ml 2 GM/50 ML BAG IV STA (06:01)
[2017-07-16] MEDS ORDERED: Albuterol-Ipratrop 3 mg / 0.5 (3 ml) UD INH STA ×3 (06:01→06:03)
[2017-07-16] MEDS ORDERED: Magnesium Sulfate 2 gm/50 ml 2 GM/50 ML BAG ONE (06:04)
--- NOTE | 2017-07-16 06:07 | ED PDOC ---
HPI: SOB/CHF/COPD Time Seen by Provider: 07/16/17 05:57 Chief Complaint (Nursing): Respiratory Distress Chief Complaint (Provider): Shortness of Breath History Per: Patient History/Exam Limitations: no limitations Onset/Duration Of Symptoms: Hrs (x3) Current Symptoms Are (Timing): Still Present Current Respiratory Medications: See Home Med List Associated Symptoms: denies: Fever Additional Complaint(s): 56 year old female presents to ED with complaints of SOB x3 hours and has a past medical history of obesity, asthma, HTN, and DM. (+) wheeze, cough, cold symptoms x2-3 days, chest tightness, and throat soreness. (-) fever, nausea, vomiting, or diarrhea. States she woke up with worsening SOB that did not respond to duonebs treatment. Notes she has been regularly using her nebulizer the past few days with little to no relief. PCP: Eagle Jennings Past Medical History Reviewed: Historical Data, Nursing Documentation, Vital Signs Vital Signs: Last Vital Signs Temp 97.7 F 07/16/17 20:03 Pulse 69 07/16/17 21:00 Resp 14 07/16/17 20:03 BP 120/76 07/16/17 20:03 Pulse Ox 96 07/16/17 20:03 - Medical History PMH: Arthritis (right hip and right knee), Asthma, Diabetes, HTN, Hypercholesterolemia, Hypothyroidism, Kidney Stones (RIGHT) Denies: HIV, Chronic Kidney Disease - Surgical History Surgical History: Appendectomy, Cholecystectomy Other surgeries: Tubal ligation - Family History Family History: States: Unknown Family Hx - Social History Current smoker - smoking cessation education provided: No Ex-Smoker (has not smoked in the last 12 months): No Alcohol: None Drugs: Denies - Immunization History Hx Tetanus Toxoid Vaccination: No Hx Influenza Vaccination: No Hx Pneumococcal Vaccination: Yes - Home Medications Home Medications: Ambulatory Orders Medication Instructions Recorded Albuterol HFA [Ventolin HFA 90 2 puff IH Q4H PRN 03/26/17 mcg/actuation (8 g)] Atorvastatin [Lipitor] 40 mg PO DAILY 03/26/17 Levothyroxine [Synthroid] 50 mcg PO DAILY 03/26/17 Montelukast [Singulair] 10 mg PO HS 03/26/17 Naproxen [Naprosyn] 500 mg PO BID PRN 03/26/17 Potassium Citrate [Urocit-K ER Tab] 10 meq PO BID 03/26/17 Ranitidine HCl [Zantac] 150 mg PO BID 03/26/17 metFORMIN [glucOPHAGE] 500 mg PO DAILY 03/26/17 - Allergies Allergies/Adverse Reactions: Allergies Allergy/AdvReac Type Severity Reaction Status Date / Time No Known Allergies Allergy Verified 07/16/17 05:56 Curb-65 Severity Score - CURB-65 Severity Score Confusion: No Respiratory Rate greater than/equal to 30: No Systolic BP <90 or Diastolic BP less than/equal 60mmHg: No Age >64: No Curb-65 Score: 0 Percentage 30-day mortality: 0.6% Wells Criteria for PE - Wells Criteria for Pulmonary Embolism Heart Rate >100: No Hemoptysis: No Total Score: 0 Review of Systems ROS Statement: Except As Marked, All Systems Reviewed And Found Negative Constitutional: Negative for: Fever ENT: Positive for: Nose Discharge, Throat Pain Cardiovascular: Positive for: Chest Pain ((+) chest tightness) Respiratory: Positive for: Cough, Shortness of Breath, Wheezing Gastrointestinal: Negative for: Nausea, Vomiting, Diarrhea Physical Exam - Reviewed Nursing Documentation Reviewed: Yes Vital Signs Reviewed: Yes - Physical Exam Appears: Positive for: Non-toxic, In Acute Distress (moderate respiratory distress. Morbidly obese.) Skin: Positive for: Normal Color, Warm, Dry Cardiovascular/Chest: Positive for: Regular Rate, Rhythm. Negative for: Murmur Respiratory: Positive for: Decreased Breath Sounds (decreased air entry), Wheezing (bilateral expiratory wheezing), Respiratory Distress (moderate). Negative for: Normal Breath Sounds Gastrointestinal/Abdominal: Positive for: Normal Exam Extremity: Positive for: Normal ROM. Negative for: Deformity Neurologic/Psych: Positive for: Alert, Oriented. Negative for: Motor/Sensory Deficits - Laboratory Results Result Diagrams: 07/16/17 06:31 07/16/17 06:31 - ECG O2 Sat by Pulse Oximetry: 97 (RA) Pulse Ox Interpretation: Normal Medical Decision Making Medical Decision Makin Initial impression: asthma exacerbation Initial plan: * EKG * Labs * Duonebs 3mL INH x3 * Magnesium Sufate 2 gm in 50mL IV * Solumedrol 125mg IVP * Accucheck * Peak flow pre/post Tx x3 * Influenza A B * Re-eval 0700 Patient will be signed out to Dr. Patel pending labs and re-evaluation. Scribe Attestation: Documented by Alisha Bentley acting as a scribe for John Zhao MD. Scribe Attestation: All medical record entries made by the Scribe were at my direction and personally dictated by me. I have reviewed the chart and agree that the record accurately reflects my personal performance of the history, physical exam, medical decision making, and the department course for this patient. I have also personally directed, reviewed, and agree with the discharge instructions and disposition. Disposition - Clinical Impression Clinical Impression: Respiratory distress, Asthma exacerbation - Patient ED Disposition Is Patient to be Admitted: Transfer of Care - Disposition Disposition: Transfer of Care Disposition Time: 07:00 Condition: FAIR Patient Signed Over To: Armando Patel III Handoff Comments: pending labs and re-evaluation
[2017-07-16 06:48] LABS: BASO # 0.1 K/uL (0.0-0.2); BASO % 0.7 % (0.0-2.0); EOS # 0.2 K/uL (0.0-0.7); EOS % 2.1 % (0.0-4.0); HEMOGLOBIN 12.1 g/dL (12.0-16.0); LYMPH # 2.2 K/uL (1.0-4.3); MEAN CELL VOLUME 91.9 fl (81.0-99.0); MEAN CORPUSCULAR HEMOGLOBIN 29.9 pg (27.0-31.0); MEAN CORPUSCULAR HGB CONC 32.6 g/dL (33.0-37.0); MEAN PLATELET VOLUME 8.4 fl (7.2-11.7); MONO # 0.4 K/uL (0.0-0.8); MONO % 5.5 % (0.0-10.0); NEUT # 5.2 K/uL (1.8-7.0); NEUT % 64.7 % (50.0-75.0); RBC 4.03 Mil/uL (3.80-5.20); RED CELL DISTRIBUTION WIDTH 14.1 % (11.5-14.5); WHITE BLOOD COUNT 8.1 K/uL (4.8-10.8)
--- NOTE | 2017-07-16 06:58 | ED PDOC ---
- Laboratory Results Result Diagrams: 07/16/17 06:31 07/16/17 06:31 - ECG O2 Sat by Pulse Oximetry: 97 (RA) Pulse Ox Interpretation: Normal - Critical Care Total Time (In Min): 35 Comments: patient required multiple bronchodilators and intravenous medications for acute respiratory failure Medical Decision Making Medical Decision Making: Time: 0700 --Endorsed from Dr. Zhao to me. --Pending labs and reevaluation. 8am re-eval patient remains dyspneic with wheeze b/l. Additional bronchodilator ordered, her 4th dose this morning in addition to Mag Sulfate 2g and solumedrol 125mg IV Time: 843 --Chest x-ray ordered Time: 920 --Chest x-ray FINDINGS: LUNGS: No active pulmonary disease. PLEURA: No significant pleural effusion identified, no pneumothorax apparent. CARDIOVASCULAR: Normal. OSSEOUS STRUCTURES: No significant abnormalities. VISUALIZED UPPER ABDOMEN: Normal. OTHER FINDINGS: None. IMPRESSION: No active disease. Re-eval 930am remains dyspneic with inability to effectively ambulate without SOB, diminished breath sounds despite maximal bronchodilator and multiple medications. thus admit to hospital: As inpatient in telemetry for asthma exacerbation with respiratory failure under the care of Dr. Eagle Jennings MD Scribe~Attestation: Documented by Cookie Patel, acting as a scribe for rAmando Patel DO. Provider Scribe~Attestation: All medical record entries made by the Scribe were at my direction and personally dictated by me. I have reviewed the chart and agree that the record accurately reflects my personal performance of the history, physical exam, medical decision making, and the department course for this patient. I have also personally directed, reviewed, and agree with the discharge instructions and disposition. Disposition Discussed With : Eagle Jennings Doctor Will See Patient In The: Hospital Counseled Patient/Family Regarding: Studies Performed, Diagnosis - Clinical Impression Clinical Impression: Respiratory distress, Asthma exacerbation - POA Present On Arrival: None - Disposition Disposition: Admitted as In-Patient (in Telemetry) Disposition Time: 09:30 Condition: FAIR
[2017-07-16 06:59] LABS: ALB/GLOB RATIO 1.5 (1.0-2.1); ALBUMIN 4.4 g/dL (3.5-5.0); ALT/SGPT 68 U/L (9-52); AST/SGOT 36 U/L (14-36); BLOOD UREA NITROGEN 14 mg/dl (7-17); CALCIUM 10.1 mg/dL (8.4-10.2); GFR AFRICAN-AMERICAN > 60; GFR NON-AFRICAN AMERICAN > 60
[2017-07-16] MEDS ORDERED: Albuterol 0.083% Inhal Sol (2.5 mg/3 mL) UD INH ONE (07:39)
--- NOTE | 2017-07-16 09:29 | RAD ---
HISTORY: SOB COMPARISON: 03/26/2017 FINDINGS: LUNGS: No active pulmonary disease. PLEURA: No significant pleural effusion identified, no pneumothorax apparent. CARDIOVASCULAR: Normal. OSSEOUS STRUCTURES: No significant abnormalities. VISUALIZED UPPER ABDOMEN: Normal. OTHER FINDINGS: None. IMPRESSION: No active disease.
--- NOTE | 2017-07-16 10:43 | CARD ---
APPROVED REPORT EKG Measurement Heart [id number] <Conclusion> Normal sinus rhythm Normal ECG
[2017-07-16] MEDS ORDERED: MethylPREDNISolone 40 mg Vial IVP SCH (12:45)
[2017-07-16] MEDS ORDERED: methylPREDNISolone 40 MG in Sodium Chloride 0.9% 50 ML IVPB SCH (12:45)
[2017-07-16] MEDS: Azithromycin 500 MG in Sodium Chloride 0.9% 250 ML IVPB SCH (15:00)
[2017-07-16] MEDS: Levothyroxine 50 MCG TAB PO SCH (15:01)
[2017-07-16] MEDS: Albuterol-Ipratrop 3 mg / 0.5 (3 ml) UD INH SCH ×2 (16:27→19:05)
[2017-07-16] MEDS: MethylPREDNISolone 40 mg Vial IVP SCH (21:07)
[2017-07-17] MEDS: Levothyroxine 50 MCG TAB PO SCH (06:32)
[2017-07-17] MEDS: MethylPREDNISolone 40 mg Vial IVP SCH ×2 (06:32→21:33)
[2017-07-17] MEDS: Albuterol-Ipratrop 3 mg / 0.5 (3 ml) UD INH SCH ×4 (07:56→19:01)
[2017-07-17] MEDS: Enoxaparin 40 mg Syringe SC SCH (08:38)
[2017-07-17] MEDS: Azithromycin 500 MG in Sodium Chloride 0.9% 250 ML IVPB SCH (08:49)
[2017-07-17] MEDS ORDERED: Insulin Lispro (humaLOG) 100 Units/ml Inj SC SCH (11:30)
[2017-07-17] MEDS: Pantoprazole 40 mg EC Tab PO SCH (11:33)
[2017-07-17] MEDS: Insulin Lispro (humaLOG) 100 Units/ml Inj SC SCH ×3 (11:37→22:00)
--- NOTE | 2017-07-17 23:52 | HP ---
HISTORY OF PRESENT ILLNESS: This is a 56-year-old female with history of bronchial asthma, was admitted to the emergency room for exacerbation of bronchial asthma. The patient was experiencing shortness of breath and wheezing. The patient was evaluated in the emergency room and she was found to have shortness of breath and the patient was treated in the emergency room with bronchodilators and steroids and symptoms were not improving. Subsequently, the patient was admitted for further management. The patient stated that she has been using her inhaled steroid as well as short-acting beta2 stimulant at home with no improvement. Other review of systems is negative. ALLERGIES: NO KNOWN ALLERGY. MEDICATIONS: As per MAR. PAST MEDICAL HISTORY: Type 2 diabetes mellitus, hypercholesterolemia, hypothyroidism. SOCIAL HISTORY: No history of smoking, EtOH or substance abuse. FAMILY HISTORY: Noncontributory. PHYSICAL EXAMINATION: GENERAL: The patient was in mild cardiopulmonary distress at the time of this examination. VITAL SIGNS: Respiratory rate of 24, blood pressure 120/70, temperature 98.2, respiratory rate 18. HEENT: Pupils equal, reactive to light. Normal-appearing mucosa of the conjunctivae, oropharyngeal and nasal membrane mucosa. NECK: Supple. No JVD. No carotid bruit. No lymph node. No thyromegaly. CHEST AND LUNGS: Bilateral symmetrical expansion. Good air exchange. No rales. The patient has bilateral scattered rhonchi with coarse rales that change with cough. CARDIOVASCULAR SYSTEM: PMI not localized. S1, S2. No additional sounds. ABDOMEN: Normoactive bowel sounds. No tenderness. No organomegaly. No masses. EXTREMITIES: No cyanosis, no clubbing, no edema. SOLAR POWER INSTALLER: Alert, awake, oriented x3. No neurological deficit could be appreciated. ASSESSMENT: 1. Exacerbation of bronchial asthma. 2. Type 2 diabetes mellitus. 3. Hypothyroidism. 4. Hypercholesterolemia. PLAN: Continue IV steroid as well as bronchodilators and azithromycin. We will monitor the peak flow meter pre and post treatment. Eagle Jennings MD
[2017-07-18] MEDS: Insulin Lispro (humaLOG) 100 Units/ml Inj SC SCH ×4 (06:42→23:25)
[2017-07-18] MEDS: Levothyroxine 50 MCG TAB PO SCH (06:44)
[2017-07-18] MEDS: Albuterol-Ipratrop 3 mg / 0.5 (3 ml) UD INH SCH ×4 (08:08→19:30)
[2017-07-18] MEDS: Enoxaparin 40 mg Syringe SC SCH (09:27)
[2017-07-18] MEDS: Pantoprazole 40 mg EC Tab PO SCH (09:27)
[2017-07-18] MEDS: MethylPREDNISolone 40 mg Vial IVP SCH ×2 (09:28→22:38)
[2017-07-18] MEDS: Azithromycin 500 MG in Sodium Chloride 0.9% 250 ML IVPB SCH (10:57)
[2017-07-18] MEDS ORDERED: Promethazine DM 12.5 mg-30 mg/10 ml Syrup PO PRN (12:33)
[2017-07-18] MEDS: Promethazine DM 6.25 mg-15 mg/5 ml Syrup PO PRN ×2 (15:39→23:10)
[2017-07-18] MEDS: Acetylcysteine 20% Inhal Soln (4ml) INH SCH ×2 (16:15→19:30)
--- NOTE | 2017-07-18 17:12 | PN ---
DATE: DAILY PROGRESS NOTE SUBJECTIVE: The patient is seen today, 07/18/2017. She is in mild respiratory distress with cough.. The patient is not able to bring up phlegm and she feels that it is stuck in her chest. PHYSICAL EXAMINATION: VITAL SIGNS: Blood pressure is 102/61, temperature 98.1, respiratory rate 18, pulse 80. HEENT: Pupils equal and reactive to light. Normal-appearing mucosa of the conjunctivae, oropharyngeal and nasal membrane mucosa. NECK: Supple. No JVD, no carotid bruit, no lymph node, no thyromegaly. CHEST AND LUNGS: Bilateral symmetrical expansion. Good air exchange. No rales. There are coarse rales that change with cough and there are scattered rhonchi all over lung munguia. CARDIOVASCULAR SYSTEM: PMI not localized, S1, S2. No additional sounds. ABDOMEN: Normoactive bowel sounds. No tenderness, no organomegaly, no masses. EXTREMITIES: No cyanosis, no clubbing, no edema. CENTRAL NERVOUS SYSTEM: Alert, awake, oriented x2. No neurological deficit could be appreciated. ASSESSMENT: 1. Exacerbation of bronchial asthma. 2. Hypertension. 3. Type 2 diabetes mellitus. PLAN: We will add Mucomyst by nebulizer as well as Phenergan DM. Continue current IV steroids and bronchodilators. Eagle Jennings MD
[2017-07-19] MEDS: Acetylcysteine 20% Inhal Soln (4ml) INH SCH ×3 (01:02→19:47)
[2017-07-19] MEDS: Levothyroxine 50 MCG TAB PO SCH (06:34)
[2017-07-19] MEDS: Insulin Lispro (humaLOG) 100 Units/ml Inj SC SCH ×4 (06:34→21:59)
[2017-07-19] MEDS: Albuterol-Ipratrop 3 mg / 0.5 (3 ml) UD INH SCH ×4 (07:29→19:47)
[2017-07-19] MEDS: MethylPREDNISolone 40 mg Vial IVP SCH ×2 (08:34→22:00)
[2017-07-19] MEDS: Pantoprazole 40 mg EC Tab PO SCH (08:34)
[2017-07-19] MEDS: Promethazine DM 6.25 mg-15 mg/5 ml Syrup PO PRN ×2 (08:35→14:31)
[2017-07-19] MEDS: Enoxaparin 40 mg Syringe SC SCH (08:35)
[2017-07-19] MEDS: Azithromycin 500 MG in Sodium Chloride 0.9% 250 ML IVPB SCH (09:30)
[2017-07-20 00:48] VITALS: RESP 18
[2017-07-20] MEDS: Acetylcysteine 20% Inhal Soln (4ml) INH SCH ×2 (01:05→07:45)
[2017-07-20] MEDS: Levothyroxine 50 MCG TAB PO SCH (06:24)
[2017-07-20] MEDS: Insulin Lispro (humaLOG) 100 Units/ml Inj SC SCH (06:42)
[2017-07-20] MEDS: Albuterol-Ipratrop 3 mg / 0.5 (3 ml) UD INH SCH ×2 (07:45→11:08)
[2017-07-20 07:55] VITALS: BP 125/77; TEMP 98.2; O2SAT 96
[2017-07-20] MEDS: Pantoprazole 40 mg EC Tab PO SCH (08:41)
[2017-07-20] MEDS: MethylPREDNISolone 40 mg Vial IVP SCH (08:41)
[2017-07-20] MEDS: Enoxaparin 40 mg Syringe SC SCH (08:41)
[2017-07-20] MEDS: Promethazine DM 6.25 mg-15 mg/5 ml Syrup PO PRN (08:43)
[2017-07-20 09:34] VITALS: PULSE 75
--- NOTE | 2017-07-21 02:34 | PN ---
DATE: SUBJECTIVE: The patient was complaining of shortness of breath, cough and inability to expectorate the sputum. The patient was started on Mucomyst as well as Phenergan and continued on steroids and antibiotics. OBJECTIVE: VITAL SIGNS: Blood pressure 103/64, temperature 98.1, respiratory rate 24 and pulse of 68. HEENT: Pupils equal, reactive to light. Normal-appearing mucosa of the conjunctivae, oropharynx and nasal membrane mucosa. NECK: Supple. No JVD. No carotid bruit. No lymph node. No thyromegaly. CHEST AND LUNGS: Bilateral rhonchi scattered all over lung munguia. CARDIOVASCULAR SYSTEM: PMI not localized. S1, S2. No additional sounds. ABDOMEN: Normoactive bowel sounds. No tenderness. No organomegaly. No masses. EXTREMITIES: No Cyanosis, no clubbing, no edema. DIRECTOR WATER AND WASTE SERVICES: Alert, awake, oriented x3. No neurological deficit could be appreciated. ASSESSMENT: 1. Exacerbation of bronchial asthma. 2. Acute bronchitis. Both are partially improved on current medications. PLAN: The patient was kept for another day to continue IV steroid as well as IV antibiotics and nebulizer treatment. Eagle Jennings MD
== END 2017-07-20 12:21 | disposition home or self-care (01) | DRG 588 ==
LOC: H.ER 05:46 → H.ERHOLD 09:21 → H.TEL 11:30
PROVIDERS: ADMIT Internal Medicine; ATTEND Internal Medicine
PROC: 3E0F73Z Introduction of Anti-inflammatory into Respiratory Tract, Via Natural or Artificial Opening (ICD-10-PCS; principal; 2017-07-16)
PROC: 3E0F7GC Introduction of Other Therapeutic Substance into Respiratory Tract, Via Natural or Artificial Opening (ICD-10-PCS; 2017-07-16)
DX: J45.901 Unspecified asthma with (acute) exacerbation (principal); J96.00 Acute respiratory failure, unspecified whether with hypoxia or hypercapnia; J20.9 Acute bronchitis, unspecified; I10 Essential (primary) hypertension; E03.9 Hypothyroidism, unspecified; E11.9 Type 2 diabetes mellitus without complications; E78.00 Pure hypercholesterolemia, unspecified; M16.11 Unilateral primary osteoarthritis, right hip; E66.9 Obesity, unspecified; Z68.41 Body mass index [BMI] 40.0-44.9, adult; Z79.84 Long term (current) use of oral hypoglycemic drugs; Z79.899 Other long term (current) drug therapy; Z87.442 Personal history of urinary calculi

== ENCOUNTER 2018-06-02 17:48 | Emergency (ER) | payer OTHER ==
[2018-06-02 17:49] VITALS: BMI 39.9
[2018-06-02 17:58] VITALS: RESP 18
[2018-06-02] MEDS ORDERED: Sodium Chloride 0.9% 1,000 ML IV STA (18:33)
--- NOTE | 2018-06-02 18:35 | ED PDOC ---
HPI: General Adult Time Seen by Provider: 06/02/18 18:34 Chief Complaint (Nursing): Abdominal Pain Chief Complaint (Provider): back pain History Per: Patient (57 y/o female h/o kidney stones notes right side flank/back pain today. Notes additional radiation to right leg. Denies any dysuria/urinary frequency/hematuria/fever/ Sent by PMD to be evaluated for kidney stones.) Past Medical History Reviewed: Historical Data, Nursing Documentation, Vital Signs Vital Signs: Last Vital Signs Temp 98.3 F 06/02/18 17:56 Pulse 75 06/02/18 17:56 Resp 18 06/02/18 17:56 BP 138/80 06/02/18 17:56 Pulse Ox 97 06/02/18 17:56 - Medical History PMH: Anxiety, Arthritis (right hip and right knee), Asthma, Diabetes, HTN, Hyp ercholesterolemia, Hypothyroidism, Kidney Stones (RIGHT) Denies: HIV, Chronic Kidney Disease - Surgical History Surgical History: Appendectomy, Cholecystectomy - Family History Family History: States: Unknown Family Hx - Immunization History Hx Tetanus Toxoid Vaccination: No Hx Influenza Vaccination: No Hx Pneumococcal Vaccination: Yes - Home Medications Home Medications: Ambulatory Orders Medication Instructions Recorded Albuterol HFA [Ventolin HFA 90 2 puff IH Q4H PRN 03/26/17 mcg/actuation (8 g)] Atorvastatin [Lipitor] 40 mg PO DAILY 03/26/17 Levothyroxine [Synthroid] 50 mcg PO DAILY 03/26/17 Montelukast [Singulair] 10 mg PO HS 03/26/17 Naproxen [Naprosyn] 500 mg PO BID PRN 03/26/17 Potassium Citrate [Urocit-K ER Tab] 10 meq PO BID 03/26/17 Ranitidine HCl [Zantac] 150 mg PO BID 03/26/17 metFORMIN [glucOPHAGE] 500 mg PO DAILY 03/26/17 Albuterol/Ipratropium [Duoneb 3 3 ml INH RQID #90 neb 07/17/17 mg/0.5 mg (3 ml) UD] Methylprednisolone [Medrol Dose 4 mg PO DAILY #21 mg 07/17/17 Pack (21 tabs)] - Allergies Allergies/Adverse Reactions: Allergies Allergy/AdvReac Type Severity Reaction Status Date / Time No Known Allergies Allergy Verified 06/02/18 17:56 Review of Systems ROS Statement: Except As Marked, All Systems Reviewed And Found Negative Physical Exam - Reviewed Nursing Documentation Reviewed: Yes Vital Signs Reviewed: Yes - Physical Exam Appears: Positive for: Well, Non-toxic, No Acute Distress Head Exam: Positive for: ATRAUMATIC, NORMAL INSPECTION, NORMOCEPHALIC Skin: Positive for: Normal Color, Warm, DRY Eye Exam: Positive for: EOMI, Normal appearance, PERRL ENT: Positive for: Normal ENT Inspection Neck: Positive for: Normal, Painless ROM Cardiovascular/Chest: Positive for: Regular Rate, Rhythm Respiratory: Positive for: CNT, Normal Breath Sounds Gastrointestinal/Abdominal: Positive for: Normal Exam, Soft, Tenderness (right flank tenderness) Back: Positive for: R CVA Tenderness Extremity: Positive for: Normal ROM Neurologic/Psych: Positive for: Alert, Oriented - ECG O2 Sat by Pulse Oximetry: 97 - Progress ED Course And Treament: toradol 15 mg iv x 1 dose ns 1 liter 500 ml per hour d/w patient muscular spasm vs renal stone. Disposition - Clinical Impression Clinical Impression: Back pain - Patient ED Disposition Is Patient to be Admitted: Transfer of Care - Disposition Disposition: Transfer of Care Disposition Time: 20:00 Condition: FAIR Patient Signed Over To: Beatrice Ferrera Handoff Comments: pending labs/ua/ct helical
[2018-06-02 19:33] LABS: SQUAMOUS EPITHIAL 1 /hpf (0-5); URINE BILIRUBIN NEGATIVE (NEGATIVE); URINE BLOOD NEGATIVE (NEGATIVE); URINE CLARITY SLIGHTY-CLOUDY (Clear); URINE COLOR YELLOW (YELLOW); URINE GLUCOSE (UA) NEG (Normal); URINE LEUKOCYTE ESTERASE NEG Leu/uL (Negative); URINE PROTEIN NEGATIVE (NEGATIVE); URINE UROBILINOGEN 0.2-1.0 mg/dL (0.2-1.0)
[2018-06-02 20:37] LABS: BASO % 0.6 % (0.0-2.0); EOS # 0.2 K/uL (0.0-0.7); HEMOGLOBIN 12.8 g/dL (12.0-16.0); LYMPH # 2.2 K/uL (1.0-4.3); LYMPH % 31.1 % (20.0-40.0); MEAN CELL VOLUME 94.1 fl (81.0-99.0); MEAN CORPUSCULAR HEMOGLOBIN 30.6 pg (27.0-31.0); MEAN CORPUSCULAR HGB CONC 32.5 g/dL (33.0-37.0); MEAN PLATELET VOLUME 8.2 fl (7.2-11.7); MONO # 0.4 K/uL (0.0-0.8); MONO % 5.1 % (0.0-10.0); NEUT # 4.3 K/uL (1.8-7.0); NEUT % 60.2 % (50.0-75.0); NRBC % 0.5 % (0.0-0.0); RBC 4.19 Mil/uL (3.80-5.20); RED CELL DISTRIBUTION WIDTH 14.2 % (11.5-14.5); WHITE BLOOD COUNT 7.1 K/uL (4.8-10.8)
--- NOTE | 2018-06-02 20:38 | ED PDOC ---
- Laboratory Results Result Diagrams: 06/02/18 20:25 06/02/18 20:25 - ECG O2 Sat by Pulse Oximetry: 97 - Progress ED Course And Treament: Case endorsed to law writer from [employer] pending labs, CT EXAM: CT Abdomen without IV contrast CLINICAL HISTORY: R/o kidney stone right sided pain TECHNIQUE: Axial computed tomography images of the abdomen and pelvis without intravenous contrast. 3D reconstructed images performed in an independent workstation 803.05 mGy-cm CONTRAST: Without COMPARISON: None provided. FINDINGS: LUNG BASES: The lung bases appear clear. No pleural effusions are seen. LIVER: Unremarkable. GALLBLADDER AND BILE DUCTS: Status post cholecystectomy PANCREAS: Unremarkable. SPLEEN: Unremarkable. ADRENAL GLANDS: Left adrenal mass measuring 2 x 1.8 9 cm KIDNEYS, URETERS, AND BLADDER: The kidneys appear within normal limits. There is no hydronephrosis or hydroureter. No urinary calculi are seen. STOMACH AND BOWEL: Unremarkable appearance of the stomach and bowel. No evidence of bowel obstruction. No evidence suggesting enteritis or colitis. APPENDIX: No evidence of acute appendicitis on CT examination. PERITONEUM: No free fluid. No free air. LYMPH NODES: No lymphadenopathy is evident. VASCULATURE: No evidence of abdominal aortic aneurysm. BONES: No aggressive appearing osseous lesion. No acute osseous pathology evident. IMPRESSION: A cyst measuring 3.37 cm abutting the anterior left inferior aspect of the uterus Status post cholecystectomy Left adrenal nodule followup recommended complete right On re-eval, patient resting comfortably; states she is feeling better. Patient states she is aware of pelvic cyst, has been following with a Auctioneer [employer] for it and does not believe it grew in size; states she never has pain on left side. Patient discharged with rx Naproxen, flexeril Advised follow up PMD within 2-3 days Return precautions given Disposition - Clinical Impression Clinical Impression: Back pain, Flank pain - POA Present On Arrival: None - Disposition Disposition: Routine/Home Disposition Time: 21:13 Condition: IMPROVED Prescriptions: Cyclobenzaprine [Cyclobenzaprine HCl] 10 mg PO BID PRN #10 tab PRN Reason: Muscle Spasm Naproxen [Naprosyn] 500 mg PO Q12 PRN #14 tablet PRN Reason: Pain, Moderate (4-7) Instructions: Flank Pain, Low Back Pain in Adults Print Language: NIUEAN
[2018-06-02 21:08] LABS: ALB/GLOB RATIO 1.5 (1.0-2.1); ALBUMIN 4.6 g/dL (3.5-5.0); ALT/SGPT 31 U/L (9-52); AST/SGOT 25 U/L (14-36); BLOOD UREA NITROGEN 11 mg/dl (7-17); GFR NON-AFRICAN AMERICAN > 60; LIPASE 105 U/L (23-300)
[2018-06-02 21:35] VITALS: BP 127/55; PULSE 72; TEMP 98.4; O2SAT 98
--- NOTE | 2018-06-03 08:58 | CT ---
Date of service: 06/02/2018 PROCEDURE: CT Abdomen and Pelvis without intravenous contrast HISTORY: r/o kidney stone COMPARISON: 12/08/2016 CT abdomen and pelvis.Summary of findings on the comparison examination: 5 mm calculus distal right ureter associated with hydroureteronephrosis. TECHNIQUE: Unenhanced. Neither IV nor oral contrast administered Radiation dose: Total exam DLP = 803.05 mGy-cm. This CT exam was performed using one or more of the following dose reduction techniques: Automated exposure control, adjustment of the mA and/or kV according to patient size, and/or use of iterative reconstruction technique. FINDINGS: LOWER THORAX: Unremarkable. LIVER: Hepatic steatosis. No focal masses. No intrahepatic bile duct dilatation or perihepatic ascites. GALLBLADDER AND BILE DUCTS: Status post cholecystectomy. No abnormality is seen in the gallbladder fossa. PANCREAS: Unremarkable. No gross lesion or ductal dilatation. SPLEEN: Unremarkable. ADRENALS: Unremarkable. No mass. KIDNEYS AND URETERS: Unremarkable. No hydronephrosis. No solid mass. VASCULATURE: Unremarkable. No aortic aneurysm. No atherosclerotic calcification or mural plaque present. BOWEL: Unremarkable. No obstruction. No gross mural thickening. APPENDIX: A normal appendix is visualized in it's entirety. PERITONEUM: Unremarkable. No free fluid. No free air. LYMPH NODES: Unremarkable. No enlarged lymph nodes. BLADDER: Unremarkable. REPRODUCTIVE: Unremarkable. BONES: No acute fracture. OTHER FINDINGS: Stable appearance of cystic structure in the retroperitoneum interposed between the aorta and the left kidney at the level of the superior mesenteric artery. Mean Hounsfield unit values consistent with simple and uncomplicated fluid filled structure. Stable cystic structure adjacent to the uterus to the left of the midline 3 x 3.1 cm. This is stable as well. IMPRESSION: No acute findings related to/accounting for the clinical presentation. Stable benign findings in the retroperitoneum and pelvis. Concordant results (preliminary interpretation) provided by [facility]. Procedure Completed: 19:02. Preliminary Report: Dictated and Authenticated: 20:27. Final Interpretation: 08:54. June 03, 2018
== END 2018-06-02 21:40 | disposition home or self-care (01) ==
LOC: H.ER 17:48
DX: R10.9 Unspecified abdominal pain (principal); M54.9 Dorsalgia, unspecified; N94.89 Other specified conditions associated with female genital organs and menstrual cycle; E03.9 Hypothyroidism, unspecified; E11.9 Type 2 diabetes mellitus without complications; E78.00 Pure hypercholesterolemia, unspecified; I10 Essential (primary) hypertension; Z79.84 Long term (current) use of oral hypoglycemic drugs
CPT/HCPCS: 74176; 80053; 81003; 83690; 85025; 87086; 96361; 96374; 99284; J1885; J7030

== ENCOUNTER 2018-09-25 11:02 | Emergency (ER) | payer OTHER ==
[2018-09-25 11:11] VITALS: O2SAT 97
[2018-09-25 11:12] VITALS: BMI 39.4
--- NOTE | 2018-09-25 11:40 | ED PDOC ---
HPI: SOB/CHF/COPD Time Seen by Provider: 09/25/18 11:20 Chief Complaint (Nursing): Shortness Of Breath Chief Complaint (Provider): Shortness Of Breath History Per: Patient History/Exam Limitations: no limitations Onset/Duration Of Symptoms: Hrs Current Symptoms Are (Timing): Still Present Additional Complaint(s): 58 y/o female with a PMHx of Asthma presents to the ED for evaluation of shortness of breath associated with a dry cough, onset at 3 AM last night. Patient reports of using her nebulizer at home with no relief of symptom. PMD: [place] Past Medical History Reviewed: Historical Data, Nursing Documentation, Vital Signs Vital Signs: Last Vital Signs Temp 97.2 F L 09/25/18 11:10 Pulse 92 H 09/25/18 11:10 Resp 22 09/25/18 11:10 BP 118/82 09/25/18 11:10 Pulse Ox 97 09/25/18 11:10 - Medical History PMH: Anxiety, Arthritis (right hip and right knee), Asthma, Diabetes, HTN, Hypercholesterolemia, Hypothyroidism, Kidney Stones (RIGHT) Denies: HIV, Chronic Kidney Disease - Surgical History Surgical History: Appendectomy, Cholecystectomy - Family History Family History: States: Unknown Family Hx - Immunization History Hx Tetanus Toxoid Vaccination: No Hx Influenza Vaccination: No Hx Pneumococcal Vaccination: Yes - Home Medications Home Medications: Ambulatory Orders Medication Instructions Recorded Albuterol HFA [Ventolin HFA 90 2 puff IH Q4H PRN 03/26/17 mcg/actuation (8 g)] Atorvastatin [Lipitor] 40 mg PO DAILY 03/26/17 Levothyroxine [Synthroid] 50 mcg PO DAILY 03/26/17 Montelukast [Singulair] 10 mg PO HS 03/26/17 Naproxen [Naprosyn] 500 mg PO BID PRN 03/26/17 Potassium Citrate [Urocit-K ER Tab] 10 meq PO BID 03/26/17 Ranitidine HCl [Zantac] 150 mg PO BID 03/26/17 metFORMIN [glucOPHAGE] 500 mg PO DAILY 03/26/17 Albuterol/Ipratropium [Duoneb 3 3 ml INH RQID #90 neb 07/17/17 mg/0.5 mg (3 ml) UD] Methylprednisolone [Medrol Dose 4 mg PO DAILY #21 mg 07/17/17 Pack (21 tabs)] Cyclobenzaprine [Cyclobenzaprine 10 mg PO BID PRN #10 tab 06/02/18 HCl] Naproxen [Naprosyn] 500 mg PO Q12 PRN #14 tablet 06/02/18 Prednisone 50 mg PO DAILY #4 tab 09/25/18 - Allergies Allergies/Adverse Reactions: Allergies Allergy/AdvReac Type Severity Reaction Status Date / Time No Known Allergies Allergy Verified 06/02/18 17:56 Review of Systems ROS Statement: Except As Marked, All Systems Reviewed And Found Negative Respiratory: Positive for: Cough, Shortness of Breath Physical Exam - Reviewed Nursing Documentation Reviewed: Yes Vital Signs Reviewed: Yes - Physical Exam Appears: Positive for: Uncomfortable Head Exam: Positive for: ATRAUMATIC, NORMOCEPHALIC Skin: Positive for: Normal Color, Warm, Dry Eye Exam: Positive for: Normal appearance, EOMI, PERRL Neck: Positive for: Normal, Painless ROM, Supple Cardiovascular/Chest: Positive for: Regular Rate, Rhythm. Negative for: Murmur Respiratory: Positive for: Normal Breath Sounds. Negative for: Respiratory Distress Gastrointestinal/Abdominal: Positive for: Normal Exam, Soft. Negative for: Tenderness Back: Positive for: Normal Inspection. Negative for: L CVA Tenderness, R CVA Tenderness, Vertebral Tenderness Extremity: Positive for: Normal ROM. Negative for: Deformity Neurological/Psych: Positive for: Awake, Alert, Oriented - Laboratory Results Result Diagrams: 09/25/18 12:03 09/25/18 12:03 - ECG O2 Sat by Pulse Oximetry: 97 (RA) Pulse Ox Interpretation: Normal Medical Decision Making Medical Decision Making: Time: 1127 Impression: Asthma Exacerbation Plan: -- EKG Time: 1141 Plan: -- EKG -- CMP -- CBC with Differentials -- CXR Two Views -- Duoneb 3mg/0.5mg 3ml (UD) 3 ml INH -- SOLU-Medrol 125 mg IVP -- Peak Flow Pre/Post Tx Time: 1159 CXR RESULTS Date of service: 09/25/2018 HISTORY: Cough COMPARISON: 07/16/2017 TECHNIQUE: Chest PA and lateral FINDINGS: LUNGS: No active pulmonary disease. PLEURA: No significant pleural effusion identified. No pneumothorax apparent. CARDIOVASCULAR: No aortic atherosclerotic calcification present. Normal cardiac size. No pulmonary vascular congestion. OSSEOUS STRUCTURES: No significant abnormalities. VISUALIZED UPPER ABDOMEN: Normal. OTHER FINDINGS: None. IMPRESSION: No active disease. Scribe Attestation: Documented by Eligio Moseley, acting as a scribe Amarilis Trent MD. Provider Scribe Attestation: All medical record entries made by the Scribe were at my direction and personally dictated by me. I have reviewed the chart and agree that the record accurately reflects my personal performance of the history, physical exam, medical decision making, and the department course for this patient. I have also personally directed, reviewed, and agree with the discharge instructions and disposition. Disposition - Clinical Impression Clinical Impression: Asthma - Disposition [facility]errals: [facility] [Outside] Disposition: Routine/Home Disposition Time: 14:12 Condition: IMPROVED Prescriptions: Prednisone 50 mg PO DAILY #4 tab Instructions: Asthma in Adults Forms: [facility] ([place])
[2018-09-25] MEDS ORDERED: Albuterol-Ipratrop 3 mg / 0.5 (3 ml) UD INH STA ×2 (11:41→13:24)
[2018-09-25] MEDS ORDERED: Albuterol-Ipratrop 3 mg / 0.5 (3 ml) UD ONE (11:55)
--- NOTE | 2018-09-25 12:03 | RAD ---
Date of service: 09/25/2018 HISTORY: Cough COMPARISON: 07/16/2017 TECHNIQUE: Chest PA and lateral FINDINGS: LUNGS: No active pulmonary disease. PLEURA: No significant pleural effusion identified. No pneumothorax apparent. CARDIOVASCULAR: No aortic atherosclerotic calcification present. Normal cardiac size. No pulmonary vascular congestion. OSSEOUS STRUCTURES: No significant abnormalities. VISUALIZED UPPER ABDOMEN: Normal. OTHER FINDINGS: None. IMPRESSION: No active disease.
[2018-09-25 13:00] LABS: BASO % 0.6 % (0.0-2.0); EOS # 0.2 K/uL (0.0-0.7); EOS % 2.8 % (0.0-4.0); HEMOGLOBIN 12.8 g/dL (12.0-16.0); LYMPH # 1.5 K/uL (1.0-4.3); LYMPH % 27.7 % (20.0-40.0); MEAN CELL VOLUME 90.8 fl (81.0-99.0); MEAN CORPUSCULAR HEMOGLOBIN 29.8 pg (27.0-31.0); MEAN CORPUSCULAR HGB CONC 32.8 g/dL (33.0-37.0); MEAN PLATELET VOLUME 8.4 fl (7.2-11.7); MONO # 0.4 K/uL (0.0-0.8); MONO % 7.1 % (0.0-10.0); NEUT # 3.5 K/uL (1.8-7.0); NEUT % 61.8 % (50.0-75.0); NRBC % 0.2 % (0.0-0.0); RBC 4.28 Mil/uL (3.80-5.20); RED CELL DISTRIBUTION WIDTH 14.4 % (11.5-14.5); WHITE BLOOD COUNT 5.6 K/uL (4.8-10.8)
[2018-09-25 13:13] LABS: BLOOD UREA NITROGEN 10 mg/dl (7-17); CALCIUM 10.1 mg/dL (8.4-10.2); GFR NON-AFRICAN AMERICAN > 60
[2018-09-25 13:14] LABS: ALBUMIN 4.7 g/dL (3.5-5.0)
[2018-09-25 13:15] LABS: ALB/GLOB RATIO 1.4 (1.0-2.1); ALT/SGPT 18 U/L (9-52); AST/SGOT 45 U/L (14-36)
[2018-09-25 14:33] VITALS: BP 133/71; PULSE 87; RESP 18; TEMP 99.1
--- NOTE | 2018-09-26 18:45 | CARD ---
APPROVED REPORT Date of service: 09/25/2018 EKG Measurement Heart [id number] <Conclusion> Normal sinus rhythm Normal ECG
== END 2018-09-25 14:30 | disposition home or self-care (01) ==
LOC: H.ER 11:02
DX: J45.901 Unspecified asthma with (acute) exacerbation (principal); E11.9 Type 2 diabetes mellitus without complications; I10 Essential (primary) hypertension; Z79.84 Long term (current) use of oral hypoglycemic drugs; Z87.442 Personal history of urinary calculi; J44.9 Chronic obstructive pulmonary disease, unspecified; E03.9 Hypothyroidism, unspecified
CPT/HCPCS: 71046; 80053; 85025; 93005; 96374; 99285; J2930